=== PATIENT | male | born 1985 | race Caucasian/White ===

== ENCOUNTER → 2019-03-25 16:35 | Outpatient (CLI) | payer OTHER, SELFPAY ==
--- NOTE | 2019-03-25 | DI.RAD.S_ITS ---
PROCEDURE: XR HIP W PEL IF DONE RT 2V INDICATIONS: Right Hip Pain TECHNIQUE: AP pelvis with lateral view(s) of the right hip(s). COMPARISON: None. FINDINGS: Bones: No fractures or dislocations, but there is moderate degenerative hip joint osteophytes on the left. Pelvic ring appears intact. No suspicious bony lesions. Soft tissues: The visualized bowel gas pattern is normal. No suspicious soft tissue calcifications. IMPRESSION: Asymmetric hip joint osteoarthritis, moderate on the right and minimal on the left. Dictated by: Israel Hatch M.D. on 03/26/2019 at 8:35 Approved by: Israel Hatch M.D. on 03/26/2019 at 8:36
== END ==
PROVIDERS: PCP Internal Medicine; Visit Provider Internal Medicine
DX: M25.551 Pain in right hip (principal); M16.11 Unilateral primary osteoarthritis, right hip
CPT/HCPCS: 73502

== ENCOUNTER → 2020-05-26 08:17 | Outpatient (CLI) | payer OTHER, SELFPAY ==
[2020-05-26] MEDS: COVID-19 VACC, Ad26(JANSSEN)/PF 0.5 ML IM (08:23)
== END ==
PROVIDERS: PCP Internal Medicine; Visit Provider Internal Medicine
DX: Z23 Encounter for immunization (principal)
CPT/HCPCS: 0031A; 91303

== ENCOUNTER → 2023-07-30 10:01 | Outpatient (CLI) | payer OTHER, SELFPAY ==
--- NOTE | 2023-07-30 10:04 | DI.RAD.S_ITS ---
PROCEDURE: XR CERVICAL SPINE 4V OR 5V INDICATIONS: NECK PAIN /BACK PAIN TECHNIQUE: 5 views of the cervical spine acquired. COMPARISON: None. FINDINGS: Bones: No fractures or dislocations to the T1 level. Oblique images demonstrate no bony foraminal stenoses. Soft tissues: No prevertebral soft tissue swelling. IMPRESSION: Unremarkable cervical spine plain films. Widely patent foramina on oblique images. Dictated by: Mono Kowalski M.D. on 07/30/2023 at 15:38 Approved by: Mono Kowalski M.D. on 07/30/2023 at 15:38
--- NOTE | 2023-07-30 10:04 | DI.RAD.S_ITS ---
PROCEDURE: XR THORACIC SPINE 3V INDICATIONS: NECK PAIN/BACK PAIN TECHNIQUE: 3 views of the thoracic spine were acquired. COMPARISON: None. FINDINGS: Bones: No fractures or dislocations. No suspicious bony lesions. 12 pairs of ribs are noted, and appear intact where visualized. Soft tissues: No paravertebral stripe thickening. IMPRESSION: No acute bony abnormality. Dictated by: Mono Kowalski M.D. on 07/30/2023 at 15:39 Approved by: Mono Kowalski M.D. on 07/30/2023 at 15:40
== END ==
PROVIDERS: PCP Internal Medicine; Referring Provider Internal Medicine; Visit Provider Internal Medicine
DX: M54.2 Cervicalgia (principal); M54.6 Pain in thoracic spine; G89.29 Other chronic pain
CPT/HCPCS: 72050; 72072

== ENCOUNTER 2023-09-04 07:30 | Outpatient (RCR) | payer OTHER, SELFPAY ==
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
--- NOTE | 2023-10-25 15:29 | PT-OP ANOTE ---
PT called pt today, who states that he is unable to continue with PT as he is busy building his house and starting school soon. PT informed pt that he will be discharged due to poor compliance with attendance policy and canceling >50% of visits scheduled. Pt verbalizes agreement and will need a new referral to return to PT.
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
== END 2023-11-01 08:43 | disposition home or self-care (01) ==
LOC: PHYS 07:30
PROVIDERS: Family Provider Internal Medicine; PCP Internal Medicine; Referring Provider Internal Medicine; Visit Provider Internal Medicine
DX: M54.2 Cervicalgia (principal); M54.6 Pain in thoracic spine; R53.1 Weakness; R29.3 Abnormal posture
CPT/HCPCS: 97110; 97162

== ENCOUNTER 2023-11-27 13:52 | Day surgery (SDC) | payer OTHER, SELFPAY ==
[2023-11-27 14:28] VITALS: BP 128/78; PULSE 61; RESP 16; TEMP 36.7; O2SAT 98
[2023-11-27] MEDS: LACTATED RINGERS 1,000 ML 42 ML IV (14:35)
--- NOTE | 2023-11-27 14:47 | PM.HP.1 ---
History of Present Illness History of Present Illness Date Patient Seen: 11/27/23 Time Patient Seen: 14:47 Chief complaint: Colonoscopy Narrative: 38-year-old man here for screening colonoscopy. Last colonoscopy 5 years ago notable for polyps. No abdominal concerns today. No first-degree family members with colon cancer [facility] Social History Smoking Status: Never smoker Meds Home Medications and Allergies Home Medications Medication Instructions Recorded Confirmed Type No Known Home Medications 11/27/23 11/27/23 History Allergies Allergy/AdvReac Type Severity Reaction Status Date / Time No Known Drug Allergies Allergy Verified 11/27/23 14:34 Exam Vital Signs (past 8 hours): - 11/27/23 14:28 Temperature 98.1 F Pulse Rate 61 Respiratory Rate 16 Blood Pressure 128/78 Pulse Oximetry 98 Oxygen Delivery Method Room Air Oxygen Delivery Method Room Air Narrative Exam Narrative: General adult man alert oriented no acute distress Chest nonlabored respiration Extremities warm well perfused Assessment & Plan Assessment & Plan narrative: The patient requires colorectal screening and colonoscopy is recommended. Technical details were discussed. Risks, benefits, alternatives explained. Risks including but not limited to myocardial infarction, aspiration, bleeding, pain, missed lesion, incomplete examination, need for further radiographic studies, intestinal injury, and need for major abdominal surgery were discussed. All questions were answered to their satisfaction, and they are in agreement with this plan. Time-Based Coding :: [TOTAL MINUTES] spent with patient and on the chart (including review of chart, obtaining history, exam, reviewing outside data, placing orders, documenting exam and treatment plan, and counseling patient) on [DATE].
[2023-11-27 15:09] VITALS: BP 109/66; PULSE 67; RESP 19; TEMP 36.4; O2SAT 96
[2023-11-27 15:15] VITALS: BP 114/70; PULSE 56; RESP 16; O2SAT 98
--- NOTE | 2023-11-27 15:16 | P.OP.COLON_ITS ---
Operative Date/Time/Diagnoses Date of procedure: 11/27/23 Time of procedure: 15:16 Pre-op diagnosis: History of colonic polyps Procedure & Clinicians Study performed: Screening colonoscopy Same procedure as scheduled: Yes Indications: Colorectal screening Surgeon: Stanislaw Lazo Procedure Notes Procedure in detail: The history and physical was performed/updated and the patient is ASA class is 2. The procedure was discussed in detail with the patient. Potential risks complications including infection, bleeding, missed diagnosis, perforation, need for surgery, and were explained. Their questions were answered and informed consent was obtained. Patient was brought to the procedure room and placed standard monitoring equipment. The patient's vital signs were monitored continuously throughout the entire procedure. Prior to starting time-out was performed. The patient was placed in the left lateral recumbent position. Procedural sedation was administered by anesthesia. Examination began with a thorough inspection of the perianal area there was no evidence of fissures, fistulae, external hemorrhoids or cutaneous malignancy. The colonoscopy scope was then placed into the anal canal and was advanced to the cecum, which was identified by the ileocecal valve, the appendiceal orifice and the confluence of the taenia. The scope was then slowly withdrawn examining colon thoroughly in all directions, irrigating it of any residual stool. The scope was retroflexed within the rectum The patient tolerated the procedure well. They will be discharged once criteria are met. The prep was of good/excellent quality. The withdrawl time was 7 min utes. FINDINGS * Unremarkable colonoscopy. Normal healthy colonic mucosa without mass or polyps. Specimen(s): none sent Impression: Normal colonoscopy Post-procedure Recommendations: Colonoscopy in 10 years Disposition: same day surgery
[2023-11-27 15:20] VITALS: BP 103/67; PULSE 67; RESP 16; O2SAT 99
[2023-11-27 15:33] VITALS: BP 109/68; PULSE 56; RESP 16; O2SAT 99
== END 2023-11-27 16:41 | disposition home or self-care (01) ==
PROVIDERS: Family Provider Internal Medicine; PCP Internal Medicine; Referring Provider Surgery; Visit Provider Surgery
PROC: 0DJD8ZZ Inspection of Lower Intestinal Tract, Via Natural or Artificial Opening Endoscopic (ICD-10-PCS; CPT 45378; principal; 2023-11-27 14:45)
DX: Z12.11 Encounter for screening for malignant neoplasm of colon (principal); Z86.010 Personal history of colon polyps
CPT/HCPCS: 45378; J2704

== ENCOUNTER → 2024-08-19 17:40 | Outpatient (CLI) | payer OTHER, SELFPAY ==
--- NOTE | 2024-08-19 17:41 | DI.RAD.S_ITS ---
PROCEDURE: XR TOE LT MIN 2V INDICATIONS: r/o stress fracture TECHNIQUE: 3 views of the left 1st toe(s) acquired. COMPARISON: None. FINDINGS: Bones: No fractures or dislocations. No suspicious bony lesions. Soft tissues: No suspicious soft tissue densities. IMPRESSION: No acute bony abnormality. Further assessment for stress fracture can be performed with three-phase bone scan. Dictated by: Gabriel Moon M.D. on 08/19/2024 at 19:12 Approved by: Gabriel Moon M.D. on 08/19/2024 at 19:13
== END ==
PROVIDERS: Family Provider Internal Medicine; PCP Family Medicine; Referring Provider Chiropractor; Visit Provider Chiropractor
DX: S93.502A Unspecified sprain of left great toe, initial encounter (principal); X58.XXXA Exposure to other specified factors, initial encounter
CPT/HCPCS: 73660